=== PATIENT | male | born 1975 | race Caucasian/White ===

== ENCOUNTER 2016-11-26 08:48 | Emergency (ER) | payer BC, OTHER ==
[~2016-11-26] VITALS: Ht 177.8 cm; Wt 78.5 kg
[2016-11-26] MEDS ORDERED: NS IV 1000 ML 1,000 ML IV ONE (09:10)
[2016-11-26] MEDS ORDERED: ONDANSETRON 4 MG/2 ML (SDV) Z0FRAN IVP ONE (09:15)
[2016-11-26] MEDS ORDERED: IOHEXOL 350 MG/ML 100 ML (OMNIPAQUE 350) VIAL IV ONE (09:15)
[2016-11-26] MEDS ORDERED: NS 100 ML (IVPB) BAG IV ONE (09:15)
--- NOTE | 2016-11-26 09:16 | ED Abdominal Pain ---
General Chief Complaint: Abdominal/GI Problems Stated Complaint: ABD PAIN Source of Information: Patient Exam Limitations: No Limitations History of Present Illness Time Seen By Provider: 09:08 Initial Comments Patient presents to ER by private conveyance with chief complaint of left-sided abdominal pain. He says he has a inguinal hernia on the left side that has occasionally not gone down and caused a bit of pain. He is seen a doctor in the past due who did not think that he had an inguinal hernia at the time. Patient has no other significant medical history he does smoke one pack a day but does not drink or use drugs. He does not take any medications and has no drug allergies. Is never seen a surgeon for his hernia. He had a bowel movement just prior to coming to the ER and did not have strain. No painful urination fevers or vomiting. He does have a little bit of nausea. Allergies and Home Medications Allergies Coded Allergies: No Known Drug Allergies (Unverified , 11/26/16) Review of Systems Constitutional: No chills, No diaphoresis, No fever, No malaise Respiratory: Denies Cough, Denies Shortness of Air Cardiovascular: Denies Chest Pain, Denies Syncope Gastrointestinal: See HPI, Denies Abdomen Distended, Abdominal Pain, Denies Constipated, Denies Diarrhea, Nausea, Denies Vomiting Genitourinary: Denies Burning, Denies Discharge Musculoskeletal: No back pain, No joint pain Skin: No pruritus, No rash Psychiatric/Neurological: Denies Headache, Denies Numbness Past [id number] Hx Patient Social History Recent Foreign Travel: No Contact w/Someone Who Travel: No Physical Exam Vital Signs VS - Last 72 Hours, by Label 11/26/16 09:02 Temp 98.1 Pulse 94 Resp 20 B/P (MAP) 128/92 Pulse Ox 97 O2 Delivery Room Air Capillary Refill : General Appearance: WD/WN, mild distress HEENT: PERRL/EOMI, pharynx normal Neck: non-tender, normal inspection Respiratory: chest non-tender, lungs clear, normal breath sounds Cardiovascular: normal peripheral pulses, regular rate, rhythm, no edema Peripheral Pulses: 2+ Dorsalis Pedis (R), 2+ Left Dors-Pedis (L) Gastrointestinal: normal bowel sounds, non tender, soft, no organomegaly Genital/Rectal: normal genital exam, other (left inguinal him with a 4-6 cm bulging nonreducible nonpulsating mass that is very tender.) Extremities: non-tender, normal inspection, normal capillary refill Neurologic/Psychiatric: alert, oriented x 3 Skin: normal color, warm/dry Progress/Results/Core Measures Results/Orders Lab Results Laboratory Tests Test 11/26/16 09:10 Range/Units White Blood Count 13.1 H 4.3-11.0 10^3/uL Red Blood Count 4.90 4.35-5.85 10^6/uL Hemoglobin 15.1 13.3-17.7 G/DL Hematocrit 44 40-54 % Mean Corpuscular Volume 90 80-99 FL Mean Corpuscular Hemoglobin 31 25-34 PG Mean Corpuscular Hemoglobin Concent 34 32-36 G/DL Red Cell Distribution Width 12.9 10.0-14.5 % Platelet Count 229 130-400 10^3/uL Mean Platelet Volume 10.1 7.4-10.4 FL Neutrophils (%) (Auto) 83 H 42-75 % Lymphocytes (%) (Auto) 11 L 12-44 % Monocytes (%) (Auto) 6 0-12 % Eosinophils (%) (Auto) 1 0-10 % Basophils (%) (Auto) 0 0-10 % Neutrophils # (Auto) 10.8 H 1.8-7.8 X 10^3 Lymphocytes # (Auto) 1.4 1.0-4.0 X 10^3 Monocytes # (Auto) 0.8 0.0-1.0 X 10^3 Eosinophils # (Auto) 0.1 0.0-0.3 10^3/uL Basophils # (Auto) 0.0 0.0-0.1 10^3/uL My Orders Orders - AYALA ZAMAN Ct Abdomen/Pelvis W (11/26/16 09:10) Cbc With Automated Diff (11/26/16 09:10) Comprehensive Metabolic Panel (11/26/16 09:10) Saline Lock/Iv-Start (11/26/16 09:10) Ns Iv 1000 Ml (Sodium Chloride 0.9%) (11/26/16 09:10) Ondansetron Injection (Zofran Injectio (11/26/16 09:15) Iohexol Injection (Omnipaque 350 Mg/Ml 1 (11/26/16 09:15) Ns (Ivpb) (Sodium Chloride 0.9% Ivpb Bag (11/26/16 09:15) Medications Given in ED Current Medications Medications Dose Ordered Sig/Bin Route Start Time Stop Time Status Last Admin Dose Admin Iohexol 100 ml ONCE ONCE IV 11/26/16 09:15 11/26/16 09:18 DC 11/26/16 09:28 100 ML Ondansetron HCl 4 mg ONCE ONCE IVP 11/26/16 09:15 11/26/16 09:16 DC 11/26/16 09:23 4 MG Sodium Chloride 100 ml ONCE ONCE IV 11/26/16 09:15 11/26/16 09:18 DC 11/26/16 09:28 80 ML Sodium Chloride 1,000 ml @ 0 mls/hr Q0M ONCE IV 11/26/16 09:10 11/26/16 09:13 DC 11/26/16 09:23 0 MLS/HR Vital Signs/I&O Vital Sign - Last 12Hours 11/26/16 09:02 Temp 98.1 Pulse 94 Resp 20 B/P (MAP) 128/92 Pulse Ox 97 O2 Delivery Room Air Diagnostic Imaging Diagonstic Imaging: CT Plain Films/CT/US/NM/MRI: abdomen, pelvis (with) Comments NAME: SHAUNA EMERY Ramirez [employer] REC#: [id number] PT STATUS: REG ER : 1975 PHYSICIAN: AYALA ZAMAN MD ADMIT DATE: 11/26/16/ER Draft Date of Exam:11/26/16 CT ABDOMEN/PELVIS W PROCEDURE: CT abdomen and pelvis with contrast. TECHNIQUE: Multiple contiguous axial images were obtained through the abdomen and pelvis after administration of intravenous contrast. INDICATION: Left lower pain, hernia. No previous. The lung bases were clear. The gallbladder contracted with no appreciable intraluminal stone. The liver and bile ducts normal. The spleen, adrenals, and pancreas unremarkable. Unobstructed kidneys appeared normal. Air-containing appendix visualized and negative. There is no diverticulitis. There is no finding of bowel, biliary, or urinary tract obstruction; and there is no ascites. The rectus sheath appeared intact. Small amount of fatty herniation along the left inguinal canal approaches the superior margin of the scrotal sac. There is no herniated viscus, and there was no adjacent edema or inflammatory reaction. Inguinal canals otherwise negative. The osseous structures of the abdomen and pelvis were normal. There is no pneumatosis or free air. 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 IMPRESSION: Likely very mild left inguinal fatty herniation without herniated viscus or regional inflammatory change. No bowel, biliary, or urinary tract obstruction. No ascites or fluid collection. No focal inflammatory process. Dictated on workstation # [id number] Dict: 11/26/16 0942 Trans: 11/26/1646 [id number] Interpreted by: LUAN REY Electronically signed by: Reviewed: Reviewed by Me Consults Consults : Consulting Physician: CURTIS RAMÍREZ MD Consults Notes Discussed the case with Dr. Ramírez, general surgeon and he recommends that the patient be seen in the clinic Thursday at 2:00 in the afternoon. Departure Impression Impression: Primary Impression: Inguinal hernia of left side without obstruction or gangrene Disposition: HOME, SELF-CARE Condition: Stable Departure-Patient Inst. Decision time for Depature: 10:01 Referrals: NO,LOCAL PHYSICIAN (PCP/Family) Primary Care Physician Patient Instructions: Groin Hernia (DC) Add. Discharge Instructions: Make sure you're eating plenty of fiber and drinking plenty of fluids and if you 're unable to pass a bowel movement or your having increasing pain or nausea or fever he should return to the ER immediately. Otherwise plan on keeping your follow-up appointment with Dr. Ramírez on Thursday at 2 PM November 28, 2016. You may call his office at [phone] if you need to reschedule. All discharge instructions reviewed with patient and/or family. Voiced understanding. Work/School Note: Work Release Form Date Seen in the Emergency Department: Nov 26, 2016 Return to Work: Nov 26, 2016 Restrictions: Need Release from Doctor Other Restrictions Listed Below: Do not lift above 20 pounds. Copy Copies To 1: CURTIS RAMÍREZ MD, TITUS J Nov 26, 2016 09:16
[2016-11-26 09:18] LABS: BASOPHILS % (AUTO) 0 % (0-10); EOSINOPHILS # (AUTO) 0.1 10^3/uL (0.0-0.3); EOSINOPHILS % (AUTO) 1 % (0-10); LYMPHOCYTES # (AUTO) 1.4 X 10^3 (1.0-4.0); LYMPHOCYTES % (AUTO) 11 % (12-44); MEAN CORPUSCULAR HEMOGLOBIN 31 PG (25-34); MEAN CORPUSCULAR HGB CONC 34 G/DL (32-36); MEAN CORPUSCULAR VOLUME 90 FL (80-99); MEAN PLATELET VOLUME 10.1 FL (7.4-10.4); MONOCYTES # (AUTO) 0.8 X 10^3 (0.0-1.0); MONOCYTES % (AUTO) 6 % (0-12); NEUTROPHILS # (AUTO) 10.8 X 10^3 (1.8-7.8); NEUTROPHILS % (AUTO) 83 % (42-75); PLATELET COUNT 229 10^3/uL (130-400); RED CELL DISTRIBUTION WIDTH 12.9 % (10.0-14.5); WHITE BLOOD COUNT 13.1 10^3/uL (4.3-11.0)
--- NOTE | 2016-11-26 09:47 | Diagnostic Imaging Report ---
PROCEDURE: CT abdomen and pelvis with contrast. TECHNIQUE: Multiple contiguous axial images were obtained through the abdomen and pelvis after administration of intravenous contrast. INDICATION: Left lower pain, hernia. No previous. The lung bases were clear. The gallbladder contracted with no appreciable intraluminal stone. The liver and bile ducts normal. The spleen, adrenals, and pancreas unremarkable. Unobstructed kidneys appeared normal. Air-containing appendix visualized and negative. There is no diverticulitis. There is no finding of bowel, biliary, or urinary tract obstruction; and there is no ascites. The rectus sheath appeared intact. Small amount of fatty herniation along the left inguinal canal approaches the superior margin of the scrotal sac. There is no herniated viscus, and there was no adjacent edema or inflammatory reaction. Inguinal canals otherwise negative. The osseous structures of the abdomen and pelvis were normal. There is no pneumatosis or free air. 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 IMPRESSION: Likely very mild left inguinal fatty herniation without herniated viscus or regional inflammatory change. No bowel, biliary, or urinary tract obstruction. No ascites or fluid collection. No focal inflammatory process. Dictated by: Dictated on workstation # [id number]
[2016-11-26 09:55] LABS: ALANINE AMINOTRANSFERASE 19 U/L (0-55); ALBUMIN 4.4 GM/DL (3.2-4.5); ANION GAP 12 MMOL/L (5-14); ASPARTATE AMINO TRANSFERASE 18 U/L (5-34); BILIRUBIN,TOTAL 0.3 MG/DL (0.1-1.0); BLOOD UREA NITROGEN 11 MG/DL (7-18); BUN/CREATININE RATIO 10; CALCIUM 9.5 MG/DL (8.5-10.1); CARBON DIOXIDE 25 MMOL/L (21-32); CHLORIDE 103 MMOL/L (98-107); CREATININE SERUM 1.08 MG/DL (0.60-1.30); GFR ESTIMATED > 60; GLUCOSE 112 MG/DL (70-105); POTASSIUM 4.2 MMOL/L (3.6-5.0); SODIUM 140 MMOL/L (135-145); TOTAL PROTEIN 7.1 GM/DL (6.4-8.2)
[2016-11-26 10:09] VITALS: BP 128/92
== END 2016-11-26 10:09 | disposition home or self-care (01) ==
LOC: ER 08:52
DX: K40.90 Unilateral inguinal hernia, without obstruction or gangrene, not specified as recurrent (principal); F17.200 Nicotine dependence, unspecified, uncomplicated
CPT/HCPCS: 36415; 74177; 80053; 85025; 96361; 96374

== ENCOUNTER 2016-12-01 15:54 | Outpatient (CLI) | payer BC ==
[~2016-12-01] VITALS: Ht 177.8 cm; Wt 78.5 kg
[2016-12-01 16:00] VITALS: BP 123/84
== END 2016-12-01 16:10 | disposition home or self-care (01) ==
LOC: PREOP 15:54
PROVIDERS: ATTEND Surgery
DX: Z01.818 Encounter for other preprocedural examination (principal); K40.90 Unilateral inguinal hernia, without obstruction or gangrene, not specified as recurrent
CPT/HCPCS: 87081

== ENCOUNTER 2016-12-04 08:25 | Day surgery (SDC) | payer BC ==
[~2016-12-04] VITALS: Ht 177.8 cm; Wt 78.5 kg
[2016-12-04] MEDS ORDERED: ceFAZolin 1 GM/NS 50 ML IVPB IV ONE ×2 (08:45)
[2016-12-04] MEDS ORDERED: BUP/EPI 0.5% 1:200,000 (MARCAINE) 10ML VIAL IJ ONE (09:40)
[2016-12-04] MEDS ORDERED: DEXAMETHASONE 10 MG/ML (DECADRON) 1 ML VIAL ONE (09:49)
[2016-12-04] MEDS ORDERED: ONDANSETRON 4 MG/2 ML (SDV) Z0FRAN ONE (09:49)
[2016-12-04] MEDS ORDERED: MIDAZOLAM 2 MG/2 ML (VERSED) VIAL ONE (09:49)
[2016-12-04] MEDS ORDERED: ROCURONIUM 50 MG/5 ML (ZEMURON) VIAL IV ONE (09:49)
[2016-12-04] MEDS ORDERED: proPOfol 200 MG/20 ML (DIPRIVAN) VIAL IV ONE (09:49)
[2016-12-04] MEDS ORDERED: SEVOFLURANE (ULTANE) 15 ML INHAL SOLN ONE ×2 (09:49→11:42)
[2016-12-04] MEDS ORDERED: fentaNYL INJECTION 250 MCG/5 ML AMP ONE (09:49)
[2016-12-04] MEDS ORDERED: LACTATED RINGERS 1,000 ML IV ONE ×2 (09:49→11:32)
[2016-12-04] MEDS ORDERED: LACTATED RINGERS 1,000 ML IV PRN (10:02)
[2016-12-04 10:04] VITALS: BP 127/85
--- NOTE | 2016-12-04 10:12 | Progress Note-Pre Operative ---
Pre-Operative Progress Note H&P Reviewed The H&P was reviewed, patient examined and no changes noted. Date Seen by Provider: Dec 04, 2016 Time Seen by Provider: 10:00 Date H&P Reviewed: Dec 04, 2016 Time H&P Reviewed: 10:00 Pre-Operative Diagnosis: left inguinal hernia CURTIS JAMISON MD Dec 04, 2016 10:12
[2016-12-04] MEDS ORDERED: HYDR-3816 PO (10:57)
--- NOTE | 2016-12-04 10:57 | Discharge Inst-Surgical ---
D/C Lap Instructions-YAQUELIN New, Converted, or Re-Newed RX: RX on Chart Follow Up Appt in 2 weeks Activity as tolerated No driving for 24 hours No driving while on pain medications Incentive Spirometry use every 2 hours while awake Regular Diet Symptoms to Report: Fever over 101 degree F, Nausea/Vomiting Infection Signs and Symptoms to report: Increased redness, Foul odor of wound, Increased drainage Bathing instructions: May shower Operative Area Clean/Dry; Keep incision clean/dry If any problems/questions: Contact your physician or go to Emergency Room CURTIS JAMISON MD Dec 04, 2016 10:57 am
[2016-12-04] MEDS ORDERED: GLYCOPYRROLATE 0.2 MG/ML (ROBINUL) 2 ML VIAL ONE (11:32)
--- NOTE | 2016-12-04 11:40 | Progress Note-Post Operative ---
Post-Operative Progess Note Surgeon (s)/Treatment Manager (s) Surgeon CURTIS JAMISON MD Treatment Manager: ivonne chinchilla [employer] Pre-Operative Diagnosis left inguinal hernia Post-Operative Diagnosis left indirect inguinal hernia. Procedure & Operative Findings Date of Procedure 12/04/16 Procedure Performed/Findings laparoscopic left inguinal hernia repair with mesh. Anesthesia Type GET Estimated Blood Loss Estimated blood loss (mL): minimal Specimens/Packing Specimens Removed none CURTIS JAMISON MD Dec 04, 2016 11:40 am
[2016-12-04] MEDS ORDERED: NEOSTIGMINE (BLOXIVERZ ) 1 MG/1ML 10 ML VIAL ONE (11:42)
[2016-12-04] MEDS ORDERED: SUGAMMADEX 100 MG/ML 5 ML (BRIDION) IV ONE (11:49)
[2016-12-04] MEDS ORDERED: HYDROmorphone (DILAUDID) 2 MG/ML VIAL IVP PRN (12:15)
[2016-12-04] MEDS ORDERED: ONDANSETRON 4 MG/2 ML (SDV) Z0FRAN IVP PRN (12:15)
[2016-12-04] MEDS ORDERED: KETOROLAC 30 MG/ML VIAL IVP ONE (12:15)
[2016-12-04] MEDS ORDERED: morphine INJ 10 MG/ML 1ML (SYR OR VIAL) IVP PRN (12:15)
[2016-12-04] MEDS ORDERED: morphine INJ 10 MG/ML 1ML (SYR OR VIAL) ONE (12:28)
[2016-12-04 13:00] VITALS: BP 120/73
[2016-12-04 13:30] VITALS: BP 120/79
--- NOTE | 2016-12-04 13:43 | OPERATIVE REPORT ---
DATE OF SERVICE: 12/04/2016 PREOPERATIVE DIAGNOSIS: Symptomatic left inguinal hernia. POSTOPERATIVE DIAGNOSIS: Symptomatic left indirect inguinal hernia. PROCEDURE: Laparoscopic left inguinal hernia repair with mesh. SURGEON: Dr. Jamison. CIRCUS TRAIN SUPERVISOR: Trenton Caban APRN. ANESTHESIA: General endotracheal. ESTIMATED BLOOD LOSS: Minimal. FINDINGS: Left indirect inguinal hernia with omentum and colon within the hernia sac. DISPOSITION: The patient tolerated the procedure well. The patient is a 41-year-old male who was seen in the emergency room for pain as well as a bulge in the left inguinal region. He had reported that he had first noticed a small palpable lesion in the left inguinal region 15 years ago, which was not symptomatic. He reports that over time it had grown larger in size. He reached the point where the swelling and pain had become He was seen in Emergency Department and found to have a left inguinal hernia which was reduced. He was seen in the office and found to have the hernia and the risks and benefits and the natural history of hernias were explained to the patient as well as the risks and benefits of surgery. He was in full understanding of this and wanted to proceed with repair of symptomatic left inguinal hernia. The patient. DESCRIPTION OF PROCEDURE: The patient was brought to the operating room, laid supine on the table. After adequate IV pain and sedating medications and general endotracheal intubation, the abdomen was prepped and draped in standard surgical fashion. Then, 0.5% Marcaine with epinephrine was then used to anesthetize the overlying skin in the infraumbilical rim. A crescent-shaped skin incision was then made using a 15 blade. A sharp towel clamp was used to retract the abdominal wall anteriorly and a Veress needle inserted with low opening pressure of 0 mmHg and abdomen was insufflated to 15 mmHg pressure. The Veress needle removed and a 10 mm Xcel trocar placed followed by a 10 mm 45 degree angle laparoscope visualizing the peritoneal cavity. A 4 quadrant abdominal exploration was performed. A left indirect inguinal hernia was identified with a segment of colon as well as omentum within the hernia sac which spontaneously reduced. There was no right inguinal hernia component. It was visualized that the remainder of the omentum, small bowel appeared normal. Under direct visualization, we then proceeded to place bilateral 5 mm ports under direct visualization after the skin and peritoneal lining were anesthetized and a skin incision made using 15 blade. The patient was then placed in Trendelenburg position. The peritoneal lining was then opened left laterally using the Sonicision. We then proceeded towards the conjoint tendon and inguinal ligament. We then proceeded with medial dissection until we reached Gurpreet's ligament. We then proceeded with inferior dissection encompassing the entire hernia sac. The cord and its surrounding structures were identified and spared throughout the process. Good hemostasis was observed. A 3D max polypropylene mesh was then placed through the 10 mm port site and tacked to Gurpreet's ligament medially and to the inguinal ligament and conjoint tendon laterally using the SorbaFix absorbable tacks. The omental lining was then placed entirely over the mesh and a few tacks placed to hold this in place with visualization of good hemostasis. The 10 mm port site fascia and peritoneum were then closed using a Amos-Blair device and 0 Vicryl suture. The abdomen was desufflated and remaining ports removed. All skin incisions were closed using 4-0 Monocryl running subcuticular sutures. Wounds were then cleaned and covered with Dermabond. The patient tolerated the procedure well. We will start IV and oral pain medications as well as a clear liquid diet. Once he is tolerating clears and has good pain control with oral pain medications and ambulating well, we will discharge him home. He will be instructed to do no heavy lifting or exertion for the next two weeks. Good scrotal Support. After 2 weeks, He may then increase activity, however, more in a gradual fashion until six weeks from the surgery date. Job ID: [id number] DocumentID: [id number] Dictated Date: 12/04/2016 11:49:10 Public Health Sanitarian Technician Date: 12/04/2016 12:29:43 Dictated By: CURTIS JAMISON MD
[2016-12-04 14:00] VITALS: BP 121/71
[2016-12-04 14:15] VITALS: BP 121/71
== END 2016-12-04 14:15 | disposition home or self-care (01) ==
LOC: SDC 08:25
PROVIDERS: ATTEND Surgery
DX: K40.90 Unilateral inguinal hernia, without obstruction or gangrene, not specified as recurrent (principal); F17.210 Nicotine dependence, cigarettes, uncomplicated